=== PATIENT | male | born 2000 | race Hispanic/Latino ===

== ENCOUNTER 2022-06-30 12:05 | Emergency (ER) | payer OTHER ==
[~2022-06-30] VITALS: Ht 170.2 cm; Wt 127.0 kg
[2022-06-30] MEDS ORDERED: LIDOCAINE VISC 2% SOLN 15 ML UDC PO ONE (12:30)
[2022-06-30] MEDS ORDERED: BELLADONNA ALK/PHENOBARBITAL 5 ML UDC PO ONE (12:30)
[2022-06-30] MEDS ORDERED: MAGNESIUM/ALUMINUM/SIMETHICONE 30 ML UDC PO ONE (12:30)
[2022-06-30] MEDS ORDERED: IOPAMIDOL 370 MG/ML 100 ML INFUS..BTL INJ ONE (13:59)
[2022-06-30] MEDS ORDERED: SODIUM CHLORIDE 0.9% 1000ML 1,000 ML IV ONE ×2 (14:00→15:30)
[2022-06-30] MEDS ORDERED: SODIUM CHLORIDE 0.9% 1000ML 1,000 ML ONE ×2 (14:06→15:25)
[2022-06-30] MEDS ORDERED: PEPCID20 MG PO (15:35)
== END 2022-06-30 16:52 | disposition home or self-care (01) ==
LOC: FSED 12:13
DX: R10.13 Epigastric pain (principal); K29.70 Gastritis, unspecified, without bleeding; K44.9 Diaphragmatic hernia without obstruction or gangrene; E86.0 Dehydration; R74.8 Abnormal levels of other serum enzymes
CPT/HCPCS: 74177; 80053; 80307; 81003; 82553; 84484; 85025; 93005; 99284; J7030; Q9967